=== PATIENT | male | born 1970 | race Caucasian/White ===

== ENCOUNTER 2024-04-26 03:07 | Emergency (ER) | payer OTHER ==
[~2024-04-26] VITALS: Ht 177.8 cm; Wt 79.4 kg
[~2024-04-26 03:07] MED LIST: CELE200; CHLO25B PO; CRUTCH4 USE; HYDACE5 PO; IRBE150 PO; NAPR550 PO; OMEP20ER PO; ROSU10TA; RXNAPNA550 PO; VALS80; VYVANSE40 MG PO
[2024-04-26] MEDS ORDERED: Metoclopramide HCl 5MG / ML 2ML Vial IV ONE (03:35)
[2024-04-26] MEDS ORDERED: NS 1,000 ML IV SCH (03:35)
[2024-04-26] MEDS ORDERED: Ketorolac Tromethamine 30mg Vial IV ONE (03:35)
[2024-04-26 03:41] LABS: Hematocrit 43.6 % (37.0-53.0); Hemoglobin 14.5 g/dL (13.5-17.5); Mean Corpuscular HGB 28.7 pg (26.0-34.0); Mean Corpuscular HGB Conc 33.3 g/dL (31.5-36.5); Mean Corpuscular Volume 86 fL (80-100); Mean Platelet Volume 9.4 fL (9.1-12.4); Platelet Count 337 K/mm3 (150-400); RDW Coefficient Variation 15.2 % (11.7-14.2); RDW Standard Deviation 48.1 fL (35.1-46.3); Red Blood Cell Count 5.05 M/mm3 (4.30-5.90); White Blood Cell Count 14.01 K/mm3 (4.00-11.30)
[2024-04-26 03:52] LABS: Albumin, Blood 3.9 g/dL (3.4-5.0); Albumin/Globulin Ratio 1.3 (0.8-1.8); Bilirubin, Direct 0.2 mg/dL (0.0-0.3); Bilirubin, Total 1.2 mg/dL (0.1-1.0); Bun/Creatinine Ratio 50.3 (12.0-20.0); Calcium, Blood 9.3 mg/dL (8.5-10.1); Creatinine, Blood 0.68 mg/dL (0.60-1.20); Globulin, Blood 3.1 g/dL (2.2-4.0); Magnesium, Blood 1.7 mg/dL (1.6-2.4); Potassium, Blood 3.3 mmol/L (3.5-5.5)
[2024-04-26 04:12] LABS: BAND PERCENT MAN 10 % (0-8); BASOPHILS PERCENT MAN 0 % (0-2); EOSINOPHILS PERCENT MAN 0 % (0-6); LYMPHOCYTES ABSOLUTE MAN 0.42 K/mm3 (0.84-5.20); LYMPHOCYTES PERCENT MAN 3 % (21-46); MONOCYTES ABSOLUTE MAN 0.84 K/mm3 (0.16-1.47); MONOCYTES PERCENT MAN 6 % (4-13); NEUTROPHILS ABSOLUTE MAN 12.74 K/mm3 (1.96-9.15); SEG NEUTROPHILS PERCENT MAN 81 % (41-73); TOTAL CELLS COUNTED 100
[2024-04-26 04:25] LABS: Influenza A, PCR NEGATIVE (NEGATIVE); Influenza B, PCR NEGATIVE (NEGATIVE); Resp Syncytial Virus, PCR NEGATIVE (NEGATIVE); SARS-Cov-2 (COVID-19) PCR, MMC NEGATIVE (NEGATIVE)
[2024-04-26] MEDS ORDERED: [UNRECOGNIZED DRUG - CODE] PO (05:37)
[2024-04-26] MEDS ORDERED: Prednisone10 MG PO (05:37)
[2024-04-26] MEDS ORDERED: MELO7.5 PO (05:38)
[2024-04-26 06:09] LABS: Source, Urine Clean Catch
[2024-04-26] MEDS ORDERED: Lactated Ringer's 1,000 ML IV ONE (06:10)
[2024-04-26 06:14] LABS: Appearance, Urine Clear (Clear); Blood, Urine Neg (Neg); Color, Urine Yellow (P-Yellow); Glucose Qualitative, Urine Neg (Neg); Ketones, Urine 1+ (Neg); Leukocyte Esterase, Urine 1+ (Neg); Nitrite, Urine Neg (Neg); Protein, Urine 1+ (Neg); Specific Gravity, Urine 1.015 (1.003-1.022); Urobilinogen, Urine NORM (Normal); pH, Urine 6.5 (5.0-8.0)
[2024-04-26 06:36] LABS: Bilirubin, Urine 1+ (Neg)
[2024-04-26 06:41] LABS: Bacteria Few /hpf; Mucus Light (0-Heavy); Red Blood Cells, Urine 0-2 /hpf (0-2); Squamous Epithelial Cells Rare /hpf (Few)
[2024-04-26] MEDS ORDERED: Potassium Chloride 20 MEQ TabCR PO ONE (07:10)
[2024-04-26] MEDS ORDERED: PROM12.5S PR (07:13)
[2024-04-26] MEDS ORDERED: ONDA4ODT MM (07:13)
[2024-04-26] MEDS ORDERED: METO10 PO (07:13)
[2024-04-26 08:37] VITALS: BP 145/65
== END 2024-04-26 08:37 | disposition home or self-care (01) ==
LOC: ER 03:07
PROVIDERS: Student in an Organized Health Care Education/Training Program
DX: A08.4 Viral intestinal infection, unspecified (principal); E86.0 Dehydration; E87.6 Hypokalemia; I10 Essential (primary) hypertension; Z98.84 Bariatric surgery status; Z88.0 Allergy status to penicillin; Z91.030 Bee allergy status; Z79.899 Other long term (current) drug therapy
CPT/HCPCS: 0241U; 74177; 80048; 80076; 81001; 83690; 83735; 85025; 87086; 93005; 93010; 96361; 96374-59; 96375; 99285-25; A9270; J1885; J2765; J7030; J7120; Q9967

== ENCOUNTER 2025-02-21 06:05 | Day surgery (SDC) | payer OTHER ==
[~2025-02-21] VITALS: Ht 171 cm; Wt 84.3 kg
[2025-02-21] VITALS (9 sets, daily range): BP systolic 120–136; BP diastolic 67–77
[~2025-02-21 06:05] MED LIST changes: +ASCO500 PO; +EPIPEN0.3 MG/0.3 IM; +MELO7.5 PO; +METO10 PO; +MULTI-VITAMIN1 EAC2 PO; +ONDA4ODT MM; +PROM12.5S PR; +Prednisone10 MG PO; +Vyvanse30 MG PO; +ZOCOR20 MG PO; +[UNRECOGNIZED DRUG - CODE] PO
[2025-02-21] MEDS ORDERED: Lactated Ringer's 1,000 ML IV SCH (06:20)
[2025-02-21] MEDS ORDERED: CeFAZolin Sodium 2,000 MG in NS 100 ML IV SCH (06:20)
[2025-02-21] MEDS ORDERED: Lidocaine HCl 2% 20 ML MDV ONE (07:00)
[2025-02-21] MEDS ORDERED: propofoL 20 ML IV ONE (07:00)
[2025-02-21] MEDS ORDERED: FentaNYL Citrate 50 MCG/ML 2 ML Injection ONE ×2 (07:01→09:20)
[2025-02-21] MEDS ORDERED: Bupivacaine 0.5% HCl 5 MG/ML 30MLVIAL ONE (07:08)
[2025-02-21] MEDS ORDERED: Dexamethasone Sod Phos 10 MG/ML 1ML VIAL ONE (07:37)
[2025-02-21] MEDS ORDERED: Ondansetron HCl 2 MG / ML 2ML Vial ONE (07:37)
[2025-02-21] MEDS ORDERED: HYDROmorphone HCl/Pf 1MG SYR IV PRN ×2 (07:55→08:00)
[2025-02-21] MEDS ORDERED: FentaNYL Citrate 50 MCG/ML 2 ML Injection IV PRN ×2 (08:00)
[2025-02-21] MEDS ORDERED: Metoclopramide HCl 5MG / ML 2ML Vial IV PRN (08:00)
[2025-02-21] MEDS ORDERED: Albuterol 2.5 MG/3 ML VIAL INH PRN (08:00)
[2025-02-21] MEDS ORDERED: ePHEDrine Sulfate 50 MG/ML 1ML Injection ONE (08:09)
[2025-02-21] MEDS ORDERED: HYDROcodone 5-APAP 325 TAB PO PRN (10:20)
--- NOTE | 2025-02-21 10:59 | NUR ---
Discharge instructions reviewed with patient. Patient verbalizes understanding. Copy given to patient to take home. Dressing to procedure site clean, dry, intact with no visible drainage, swelling, erythema or bruising noted. Discharged via wheelchair to private car for ride home.
== END 2025-02-21 11:00 | disposition home or self-care (01) ==
LOC: ORSCMMR 06:05 → ORD 07:30 → ORSCMMR 11:00
PROVIDERS: Surgery
PROC: 8E0W4CZ Robotic Assisted Procedure of Trunk Region, Percutaneous Endoscopic Approach (ICD-10-PCS; principal; 2025-02-21 07:30)
PROC: 0YUA4JZ Supplement Bilateral Inguinal Region with Synthetic Substitute, Percutaneous Endoscopic Approach (ICD-10-PCS; principal; 2025-02-21 07:30)
DX: K40.91 Unilateral inguinal hernia, without obstruction or gangrene, recurrent (principal); K40.90 Unilateral inguinal hernia, without obstruction or gangrene, not specified as recurrent; I10 Essential (primary) hypertension; R73.03 Prediabetes; Z79.899 Other long term (current) drug therapy; Z98.84 Bariatric surgery status
CPT/HCPCS: A9270; C1781; J0690; J1100; J2405; J2704; J3010; J7120

== ENCOUNTER 2025-09-11 07:01 | Day surgery (SDC) | payer OTHER ==
[~2025-09-11] VITALS: Ht 172.7 cm; Wt 81.0 kg
[2025-09-11] MEDS ORDERED: LISDEXAMFETAMIN30 MG (07:58)
[2025-09-11 10:07] VITALS: BP 119/76
== END 2025-09-11 10:00 | disposition home or self-care (01) ==
LOC: ORSCSDS 07:01 → ORD 08:30 → ORSCSDS 08:30 → ORD 14:00
PROVIDERS: Family Medicine
PROC: 0DJD8ZZ Inspection of Lower Intestinal Tract, Via Natural or Artificial Opening Endoscopic (ICD-10-PCS; principal; 2025-09-11 09:00)
DX: Z12.11 Encounter for screening for malignant neoplasm of colon (principal); K64.4 Residual hemorrhoidal skin tags; K57.30 Diverticulosis of large intestine without perforation or abscess without bleeding; I10 Essential (primary) hypertension; R73.03 Prediabetes; E78.2 Mixed hyperlipidemia; Z86.16 Personal history of COVID-19; Z79.899 Other long term (current) drug therapy
CPT/HCPCS: J2704; J7120